=== PATIENT | female | born 1990 | race Hispanic/Latino ===

== ENCOUNTER 2019-03-10 18:27 | Emergency (ER) | payer OTHER ==
[2019-03-10] MEDS ORDERED: LIDOCAINE 5% TOPICAL PATCH TP ONE (19:12)
[2019-03-10] MEDS ORDERED: KETOROLAC TROMETHAMINE 60 MG/2 ML VIAL ONE (19:12)
[2019-03-10] MEDS ORDERED: DIAZEPAM 5 MG TABLET ONE (19:13)
[2019-03-10] MEDS ORDERED: ACETAMINOPHEN EXTRA STRENGTH 500 MG TABLET ONE (19:18)
== END 2019-03-10 20:48 | disposition home or self-care (01) ==
LOC: EDH 18:27
DX: M54.16 Radiculopathy, lumbar region (principal); E03.9 Hypothyroidism, unspecified; G43.909 Migraine, unspecified, not intractable, without status migrainosus; Z87.891 Personal history of nicotine dependence
CPT/HCPCS: 81025; 99284; J1885

== ENCOUNTER 2020-10-24 06:37 | Emergency (ER) | payer BC, OTHER ==
[~2020-10-24] VITALS: Ht 170.2 cm; Wt 123.8 kg
[2020-10-24 06:41] VITALS: BP 146/85
[2020-10-24 08:15] VITALS: BP 134/74
[2020-10-24] MEDS ORDERED: KETOROLAC 60 MG VIAL (30MG/ML) ONE (08:19)
[2020-10-24 08:20] LABS: BASOPHILS % (AUTO) 0.6 % (0.0-5.0); EOSINOPHILS % (AUTO) 1.6 % (0.0-8.0); LYMPHOCYTES % (AUTO) 32.6 % (21.0-51.0); MEAN CORPUSCULAR HEMOGLOBIN 32.6 pg (27.0-33.0); MEAN CORPUSCULAR HGB CONC 34.9 g/dL (32.0-36.0); MEAN CORPUSCULAR VOLUME 93.5 fL (79-99); MONOCYTES % (AUTO) 4.7 % (3.0-13.0); NEUTROPHILS % (AUTO) 60.3 % (40.0-77.0); PLATELET COUNT (AUTO) 245 K/uL (130-400); RED BLOOD CELL COUNT(AUTO) 4.17 MIL/uL (4.00-5.50); RED CELL DISTRIBUTION WIDTH 11.6 % (11.0-15.5); WHITE BLOOD COUNT (AUTO) 9.5 K/uL (4.8-10.8)
[2020-10-24] MEDS ORDERED: KETOROLAC 60 MG VIAL (30MG/ML) IM ONE (08:30)
[2020-10-24] MEDS ORDERED: NAPR-1180 PO (09:22)
[2020-10-24] MEDS ORDERED: MEDR10TA PO (09:22)
== END 2020-10-24 09:32 | disposition home or self-care (01) ==
LOC: EDH 06:43
DX: N92.0 Excessive and frequent menstruation with regular cycle (principal); E28.2 Polycystic ovarian syndrome; E66.01 Morbid (severe) obesity due to excess calories; Z68.41 Body mass index [BMI] 40.0-44.9, adult; Z79.1 Long term (current) use of non-steroidal anti-inflammatories (NSAID)
CPT/HCPCS: 36415; 84703; 85025; 86850; 86900; 86901; 96372; 99284; J1885